=== PATIENT | female | born 1990 | race Caucasian/White ===

== ENCOUNTER → 2018-12-07 | Outpatient (CLI) | payer OTHER ==
[~2018-12-07] MED LIST: ALBU90OI INH; DIPATR PO; METF500C PO; Monodox100 MG PO; PROC10 PO; Prilosec Otc20 MG PO; UNKNOWN ANTIBIOTIC; Zofran Odt4 MG SL
[2018-12-07 15:25] LABS: U Amphetamine Screen Not Detected; U Barbituate Screen Not Detected; U Benzodiazapine Screen Not Detected; U Buprenorphine Screen Not Detected; U Cannabinoids Screen Not Detected; U Cocaine Screen Not Detected; U Methadone Screen Not Detected; U Methamphetamine Screen Not Detected; U Opiates Screen Not Detected; U Oxycodone Screen Not Detected; U Phencyclidine Screen Not Detected; U Propoxyphene Screen Not Detected
== END | disposition home or self-care (01) ==
LOC: LAB SHORT 12:09 → LAB 12:09
PROVIDERS: Obstetrics & Gynecology
DX: Z34.80 Encounter for supervision of other normal pregnancy, unspecified trimester (principal)

== ENCOUNTER → 2019-01-04 | Outpatient (CLI) | payer OTHER ==
[2019-01-04 15:30] LABS: Protein, Urine Random 42.2 mg/dL (0.0-11.9)
== END | disposition home or self-care (01) ==
LOC: LAB SHORT 13:54 → LAB 13:54
PROVIDERS: Obstetrics & Gynecology
DX: O13.3 Gestational [pregnancy-induced] hypertension without significant proteinuria, third trimester (principal)
CPT/HCPCS: 82570; 84156

== ENCOUNTER → 2019-01-10 | Outpatient (CLI) | payer OTHER | END | disposition home or self-care (01) | LOC: LAB SHORT 11:08 → LAB 11:08 | DX: Z34.80 Encounter for supervision of other normal pregnancy, unspecified trimester (principal) | CPT/HCPCS: 87081; 87653 ==

== ENCOUNTER 2019-01-17 17:25 | Inpatient (IN) | payer OTHER ==
[~2019-01-17] VITALS: Ht 152.4 cm; Wt 150.0 kg
[2019-01-17 18:04] LABS: Source, Urine Clean Catch
[2019-01-17 18:07] LABS: Appearance, Urine Clear (Clear); Bilirubin, Urine Neg (Neg); Blood, Urine 1+ (Neg); Color, Urine Yellow (P-Yellow); Glucose Qualitative, Urine 2+ (Neg); Ketones, Urine Neg (Neg); Leukocyte Esterase, Urine 1+ (Neg); Nitrite, Urine Neg (Neg); Protein, Urine Neg (Neg); Urobilinogen, Urine NORM (Normal)
[2019-01-17 18:31] LABS: Red Blood Cells, Urine Not Seen /hpf (0-2)
[2019-01-17 18:32] LABS: Bacteria Rare /hpf; Squamous Epithelial Cells Mod /hpf (Few)
[2019-01-17] MEDS ORDERED: Verotin-Gr Cap1 EACH PO (19:54)
[2019-01-17 20:47] LABS: BASOPHILS ABSOLUTE AUTO 0.04 K/mm3 (0.00-0.23); BASOPHILS PERCENT AUTO 0 % (0-2); EOSINOPHILS ABSOLUTE AUTO 0.14 K/mm3 (0.00-0.68); EOSINOPHILS PERCENT AUTO 1 % (0-6); IMMATURE GRAN ABSOLUTE AUTO 0.16 K/mm3 (0.00-0.10); IMMATURE GRAN PERCENT AUTO 1 % (0-1); LYMPHOCYTES ABSOLUTE AUTO 3.48 K/mm3 (0.84-5.20); LYMPHOCYTES PERCENT AUTO 24 % (21-46); MONOCYTES ABSOLUTE AUTO 1.09 K/mm3 (0.16-1.47); MONOCYTES PERCENT AUTO 8 % (4-13); Mean Corpuscular HGB 28.9 pg (26.0-34.0); Mean Corpuscular HGB Conc 33.3 g/dL (31.5-36.5); Mean Corpuscular Volume 87 fL (80-100); Mean Platelet Volume 11.3 fL (9.1-12.4); NEUTROPHILS ABSOLUTE AUTO 9.49 K/mm3 (1.96-9.15); NEUTROPHILS PERCENT AUTO 66 % (41-73); Platelet Count 260 K/mm3 (150-400); RDW Coefficient Variation 13.4 % (11.7-14.2); RDW Standard Deviation 41.4 fL (35.1-46.3); Red Blood Cell Count 4.15 M/mm3 (3.80-5.20)
[2019-01-17 21:04] LABS: Alanine Aminotransfer (ALT/SGP 14 U/L (12-78); Albumin, Blood 2.7 g/dL (3.4-5.0); Albumin/Globulin Ratio 0.6 (0.8-1.8); Alk Phos 75 U/L (50-136); Anion Gap 8 mmol/L (6-16); Aspartate Aminotrans (AST/SGOT 10 U/L (12-37); Bilirubin, Total 0.3 mg/dL (0.1-1.0); Blood Urea Nitrogen 13 mg/dL (8-24); Bun/Creatinine Ratio 30.1 (12.0-20.0); CO2, Blood 22 mmol/L (21-32); Calcium, Blood 9.4 mg/dL (8.5-10.1); Chloride, Blood 102 mmol/L (98-108); Creatinine, Blood 0.43 mg/dL (0.40-1.00); Globulin, Blood 4.7 g/dL (2.2-4.0); Glomerular Filtration Rate >60 (60-); Glucose, Blood 127 mg/dL (70-99); Potassium, Blood 3.9 mmol/L (3.5-5.5); Sodium, Blood 132 mmol/L (136-145); Total Protein, Blood 7.4 g/dL (6.4-8.2)
--- NOTE | 2019-01-18 14:21 | NUR ---
PATIENT GAVE [employer] ATTORNEY PERMISSION TO PERFORM CARE ON 01/18/19.
--- NOTE | 2019-01-18 22:16 | NUR ---
RECEIEVED REPORT FROM IRAM MELCHOR. ASSUMED CARE OF PATIENT AT 2100.
[2019-01-19 06:17] LABS: Hematocrit 33.2 % (33.0-51.0); Mean Corpuscular HGB 28.7 pg (26.0-34.0); Mean Corpuscular HGB Conc 33.1 g/dL (31.5-36.5); Mean Corpuscular Volume 87 fL (80-100); Mean Platelet Volume 11.4 fL (9.1-12.4); Platelet Count 232 K/mm3 (150-400); RDW Coefficient Variation 13.4 % (11.7-14.2); RDW Standard Deviation 41.4 fL (35.1-46.3); Red Blood Cell Count 3.83 M/mm3 (3.80-5.20); White Blood Cell Count 13.58 K/mm3 (4.00-11.30)
--- NOTE | 2019-01-19 10:49 | NUR ---
CONSULT. BABY IS 36 WEEKS GESTATION AND ABOUT 16 HOURS OLD. ATTEMPTS AT BREAST, THEN IS GIVEN A BOTTLE OF FORMULA AND IS TAKING 20-5OCC, HAS HAD LOW BLOOD SUGAR PROBLEMS. MOM EXPERIENCED WITH PUMPING, FIRST BABY HAD LATCH PROBLEMS AND HER NIPPLES WERE INVERTED THEN, NOW EVERTED BUT VERY SHORT SHANKED. HANDLES BABY WELL. INSTRUCT IN USE OF SNS OF FORMULA USING SYRINGE/FEEDING TUBE AT BREAST, WITH SHIELD OVER THE TOP, AND LATCH BABY TO SHIELD. HE HAS SHORT BURSTS OF SUCKLING, MOM CAN FEEL THE SUCTION ONLY PART OF THE TIME, SOME BITING AT BREAST ALSO. TOOK AND RETAINED 30CC. TO TRY AND WAKEN FOR FEEDINGS Q2 HOURS NOW, Q3 AT THE LONGEST INTERVAL. MOM SET UP WITH DOUBLE PUMP, RECORDING LOG, WASHING INSTRUCTIONS, AND SUPPLIES. INSTRUCT TO PUMP AT LEAST 8X/DAY, CLOSER TO Q2 HOURS DURING THE DAY, Q4 HOURS AT NIGHT, FOR 15-20 MINUTES, IMMEDIATELY AFTER HE HAS FED. SHE HAD GOOD PRODUCTION WITH FIRST CHILD. INSTRUCT IN CHANGES TO EXPECT DURING THE FIRST 2 WEEKS WITH HIM BEING AND HOW TO CONSERVE HIS ENERGY MUCH POSSIBLE THE FIRST 2 WEEKS. QUESTIONS ANSWERED.
--- NOTE | 2019-01-19 12:30 | NUR ---
RECEIVED REPORT FROM JILL ANTHONY. ASSUMING CARE OF PT AT THIS TIME.
--- NOTE | 2019-01-19 13:38 | NUR ---
1125 blood pressure PATIENT BREAST FEEDING WITH SNS ASSIST BY S/O WILL RECHECK BLOOD PRESSURE AFTER BABY IS DONE FEEDING
[2019-01-20] MEDS ORDERED: IBUP800 PO (09:58)
[2019-01-20] MEDS ORDERED: LABE200 PO (09:59)
--- NOTE | 2019-01-20 16:08 | NUR ---
DISCHARGE INSTRUCTIONS, WRITTEN AND VERBAL, GIVEN TO PT. ANSWERED ALL QUESTIONS AND CONCERNS. PT IS DISCHARGED.
--- NOTE | 2019-01-20 16:18 | NUR ---
PRESCRIPTIONS CALLED INTO [facility] PER PT REQUEST. SPOKE TO PHARMACIST VICK.
== END 2019-01-20 16:26 | disposition home or self-care (01) | DRG 807 ==
LOC: OBS 17:25 → BC 17:26 → OBS 18:39 → BC 18:40
PROVIDERS: ADMIT Obstetrics & Gynecology
PROC: 10E0XZZ Delivery of Products of Conception, External Approach (ICD-10-PCS; principal; 2019-01-18)
PROC: 3E033VJ Introduction of Other Hormone into Peripheral Vein, Percutaneous Approach (ICD-10-PCS; 2019-01-18)
PROC: 10907ZC Drainage of Amniotic Fluid, Therapeutic from Products of Conception, Via Natural or Artificial Opening (ICD-10-PCS; 2019-01-18)
PROC: 6A550ZT Pheresis of Cord Blood Stem Cells, Single (ICD-10-PCS; 2019-01-18)
PROC: 3E0R3BZ Introduction of Anesthetic Agent into Spinal Canal, Percutaneous Approach (ICD-10-PCS; 2019-01-18)
PROC: 00HU33Z Insertion of Infusion Device into Spinal Canal, Percutaneous Approach (ICD-10-PCS; 2019-01-18)
DX: O13.4 Gestational [pregnancy-induced] hypertension without significant proteinuria, complicating childbirth (principal); Z37.0 Single live birth; Z87.891 Personal history of nicotine dependence; O99.214 Obesity complicating childbirth; Z3A.36 36 weeks gestation of pregnancy
CPT/HCPCS: 36415; 51702; 59025; 80053; 81001; 85025; 85027; 86850; 86900; 86901; J0360; J1885; J2001; J2405; J2590; J3010; J7120

== ENCOUNTER 2019-03-09 13:36 | Day surgery (SDC) | payer OTHER ==
[~2019-03-09] VITALS: Ht 177.8 cm; Wt 150.0 kg
[~2019-03-09 13:36] MED LIST changes: +IBUP800 PO; +LABE200 PO; +Verotin-Gr Cap1 EACH PO
--- NOTE | 2019-03-09 15:09 | NUR ---
03/09/19 1509 Jahaira Thorpe PT WITH NOTED HYDRADENITIS AMID THE PANUS, INSPECTED VARYING STAGES OF GROWTH AND HEALING,ONE OPEN WITH SEROUS DRAINAGE
--- NOTE | 2019-03-09 16:19 | NUR ---
03/09/19 1619 Indira Knapp HYDROCODONE WOULD NOT SCAN SO I MANUALLY ENTERED THE MEDICATION
== END 2019-03-09 16:29 | disposition home or self-care (01) ==
LOC: ORSCSDS 13:36
PROVIDERS: Obstetrics & Gynecology
PROC: 0UT74ZZ Resection of Bilateral Fallopian Tubes, Percutaneous Endoscopic Approach (ICD-10-PCS; principal; 2019-03-09 15:00)
DX: Z30.2 Encounter for sterilization (principal); J45.909 Unspecified asthma, uncomplicated; I10 Essential (primary) hypertension; Z87.891 Personal history of nicotine dependence; E66.01 Morbid (severe) obesity due to excess calories; Z68.42 Body mass index [BMI] 45.0-49.9, adult; Z79.899 Other long term (current) drug therapy
CPT/HCPCS: 82947; 88302; A9270-GY; J1100; J1885; J2250; J2405; J2704; J3010

== ENCOUNTER 2020-04-08 19:05 | Emergency (ER) | payer OTHER ==
[~2020-04-08] VITALS: Ht 175.3 cm; Wt 143.3 kg
== END 2020-04-08 21:00 | disposition home or self-care (01) ==
LOC: ER 19:05
DX: S06.0X9A Concussion with loss of consciousness of unspecified duration, initial encounter (principal); S00.83XA Contusion of other part of head, initial encounter; Z88.0 Allergy status to penicillin; Z88.1 Allergy status to other antibiotic agents; Z87.891 Personal history of nicotine dependence; W01.0XXA Fall on same level from slipping, tripping and stumbling without subsequent striking against object, initial encounter
CPT/HCPCS: 70450; 70486; 99283-25

== ENCOUNTER → 2021-04-24 | Outpatient (CLI) | payer OTHER | LOC: LAB EV 16:27 → LAB 16:27 → LAB SHORT 16:27 | DX: L02.91 Cutaneous abscess, unspecified (principal); Z88.0 Allergy status to penicillin; Z88.1 Allergy status to other antibiotic agents | CPT/HCPCS: 87070; 87075; 87076; 87205 ==

== ENCOUNTER 2022-06-12 18:55 | Emergency (ER) | payer OTHER ==
[~2022-06-12] VITALS: Ht 175.3 cm; Wt 127.0 kg
[~2022-06-12 18:55] MED LIST changes: +BENZ100A PO; +ONDA4ODT MM
[2022-06-12 19:59] LABS: BASOPHILS ABSOLUTE AUTO 0.06 K/mm3 (0.00-0.23); BASOPHILS PERCENT AUTO 1 % (0-2); EOSINOPHILS ABSOLUTE AUTO 0.59 K/mm3 (0.00-0.68); EOSINOPHILS PERCENT AUTO 6 % (0-6); Hematocrit 36.8 % (33.0-51.0); IMMATURE GRAN ABSOLUTE AUTO 0.03 K/mm3 (0.00-0.10); IMMATURE GRAN PERCENT AUTO 0 % (0-1); LYMPHOCYTES ABSOLUTE AUTO 2.71 K/mm3 (0.84-5.20); LYMPHOCYTES PERCENT AUTO 28 % (21-46); MONOCYTES ABSOLUTE AUTO 0.57 K/mm3 (0.16-1.47); MONOCYTES PERCENT AUTO 6 % (4-13); Mean Corpuscular HGB 29.7 pg (26.0-34.0); Mean Corpuscular HGB Conc 35.3 g/dL (31.5-36.5); Mean Corpuscular Volume 84 fL (80-100); Mean Platelet Volume 11.3 fL (9.1-12.4); NEUTROPHILS ABSOLUTE AUTO 5.87 K/mm3 (1.96-9.15); NEUTROPHILS PERCENT AUTO 60 % (41-73); Platelet Count 260 K/mm3 (150-400); RDW Coefficient Variation 11.9 % (11.7-14.2); RDW Standard Deviation 35.8 fL (35.1-46.3); Red Blood Cell Count 4.37 M/mm3 (3.80-5.20); White Blood Cell Count 9.83 K/mm3 (4.00-11.30)
[2022-06-12 20:08] LABS: Albumin, Blood 3.7 g/dL (3.4-5.0); Albumin/Globulin Ratio 0.9 (0.8-1.8); Bilirubin, Total 0.3 mg/dL (0.1-1.0); Bun/Creatinine Ratio 17.9 (12.0-20.0); Calcium, Blood 8.8 mg/dL (8.5-10.1); Creatinine, Blood 0.73 mg/dL (0.40-1.00); Globulin, Blood 3.9 g/dL (2.2-4.0); Potassium, Blood 3.5 mmol/L (3.5-5.5); Total Protein, Blood 7.6 g/dL (6.4-8.2)
== END 2022-06-12 21:28 | disposition left against medical advice (07) ==
LOC: ER 18:55
PROVIDERS: Physician Assistant
DX: R06.02 Shortness of breath (principal); Z53.21 Procedure and treatment not carried out due to patient leaving prior to being seen by health care provider
CPT/HCPCS: 80053; 83690; 85025

== ENCOUNTER 2024-01-23 17:16 | Emergency (ER) | payer OTHER ==
[~2024-01-23] VITALS: Ht 177.8 cm; Wt 104.3 kg
[2024-01-23 17:41] VITALS: BP 175/113
[2024-01-23] MEDS ORDERED: Dexamethasone Sod Phos 10 MG/ML 1ML VIAL PO ONE (19:05)
== END 2024-01-23 19:14 | disposition home or self-care (01) ==
LOC: ER 17:16
DX: J04.0 Acute laryngitis (principal); E11.9 Type 2 diabetes mellitus without complications; J45.909 Unspecified asthma, uncomplicated; F17.210 Nicotine dependence, cigarettes, uncomplicated; Z88.0 Allergy status to penicillin
CPT/HCPCS: 71046; 87430; J1100

== ENCOUNTER → 2024-07-21 | Outpatient (CLI) | payer OTHER ==
[2024-07-21 13:54] LABS: BASOPHILS ABSOLUTE AUTO 0.03 K/mm3 (0.00-0.23); BASOPHILS PERCENT AUTO 0 % (0-2); EOSINOPHILS ABSOLUTE AUTO 0.16 K/mm3 (0.00-0.68); EOSINOPHILS PERCENT AUTO 2 % (0-6); Hematocrit 37.5 % (33.0-51.0); Hemoglobin 12.9 g/dL (11.5-16.0); IMMATURE GRAN ABSOLUTE AUTO 0.01 K/mm3 (0.00-0.10); IMMATURE GRAN PERCENT AUTO 0 % (0-1); LYMPHOCYTES ABSOLUTE AUTO 1.97 K/mm3 (0.84-5.20); LYMPHOCYTES PERCENT AUTO 27 % (21-46); MONOCYTES ABSOLUTE AUTO 0.54 K/mm3 (0.16-1.47); MONOCYTES PERCENT AUTO 7 % (4-13); Mean Corpuscular HGB 30.1 pg (26.0-34.0); Mean Corpuscular HGB Conc 34.4 g/dL (31.5-36.5); Mean Corpuscular Volume 88 fL (80-100); Mean Platelet Volume 10.7 fL (9.1-12.4); NEUTROPHILS PERCENT AUTO 63 % (41-73); Platelet Count 215 K/mm3 (150-400); RDW Coefficient Variation 12.1 % (11.7-14.2); RDW Standard Deviation 38.6 fL (35.1-46.3); Red Blood Cell Count 4.28 M/mm3 (3.80-5.20); White Blood Cell Count 7.31 K/mm3 (4.00-11.30)
[2024-07-21 14:15] LABS: Albumin, Blood 3.8 g/dL (3.4-5.0); Bilirubin, Total 0.6 mg/dL (0.1-1.0); Bun/Creatinine Ratio 11.1 (12.0-20.0); Calcium, Blood 9.1 mg/dL (8.5-10.1); Creatinine, Blood 0.72 mg/dL (0.40-1.00); Globulin, Blood 3.7 g/dL (2.2-4.0); Potassium, Blood 3.9 mmol/L (3.5-5.5); Thyroid Stimulating Hormone 0.933 uIU/mL (0.360-4.800); Total Protein, Blood 7.5 g/dL (6.4-8.2)
== END ==
LOC: LAB SHORT 13:48 → LAB 13:48
PROVIDERS: Physician Assistant Surgical
DX: I16.0 Hypertensive urgency (principal)
CPT/HCPCS: 80053; 84443; 85025